=== PATIENT | male | born 1960 | race Caucasian/White ===

== ENCOUNTER 2022-05-11 10:30 | Emergency (ER) | payer OTHER, SELFPAY ==
[2022-05-11 10:41] VITALS: BP 123/75; PULSE 87; RESP 16; TEMP 36.8; O2SAT 98
[2022-05-11 10:48] VITALS: BP 123/75; PULSE 87; RESP 16; TEMP 36.8; O2SAT 98
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
== END 2022-05-11 10:59 | disposition home or self-care (01) ==
PROVIDERS: Emergency Provider Nurse Practitioner
DX: J01.90 Acute sinusitis, unspecified (principal)
CPT/HCPCS: 99213; G0463

== ENCOUNTER 2022-09-28 12:15 | Emergency (ER) | payer OTHER, SELFPAY ==
--- NOTE | 2022-09-28 12:21 | ED.WOUNDLAC ---
HPI - Wound/Laceration General Chief Complaint: Wound/Laceration Stated Complaint: finger laceration Time Seen by Provider: 09/28/22 12:23 Source: patient, RN notes reviewed and old records reviewed Mode of arrival: ambulatory Limitations: no limitations History of Present Illness HPI narrative: 61-year-old male presents to the [facility] with complaints of a finger laceration. flap laceration to the DIP left 2nd finger, dorsal lateral. J-shaped. Bleeding controlled. States that he was using a golf ball trimmer when he caught his finger. Unknown last Tdap Extremity Location: Left: hand ( left 2nd finger) Patient tetanus UTD: No Context: accidental Associated symptoms: none Treatments prior to arrival: bandage Related Data Allergies Allergy/AdvReac Type Severity Reaction Status Date / Time No Known Allergies Allergy Verified 09/28/22 12:18 Review of Systems Review of Systems: All systems reviewed & are unremarkable except as noted in HPI and below Constitutional: Constitutional: Reports no additional constitutional complaints Eyes: Eyes: Reports no additional eye complaints ENT: Reports system reviewed and no additional complaints, except as documented Cardiovascular: Cardiovascular: Reports no additional cardiovascular complaints, Denies chest pain and Denies dyspnea Respiratory: Respiratory: Reports no additional respiratory complaints, Denies chest congestion, Denies cough and Denies dyspnea Gastrointestinal: Gastrointestinal: Reports no additional gastrointestinal complaints, Denies abdominal pain, Denies nausea and Denies vomiting Musculoskeletal: Musculoskeletal: Reports no additional musculoskeletal complaints Integumentary/Breasts: Skin/Breast: Reports as per HPI and Reports wounds Neurologic: Reports system reviewed and no additional complaints, except as documented Psychiatric: Psychiatric: Reports no additional psychiatric complaints Allergic/Immunologic: Allergic/Immunologic: Reports no additional allergic/immunologic complaints [facility] Past Medical History Medical History Facial fracture Left knee pain Recurrent sinusitis Surgical History Surgical History History of knee surgery bilateral arthroscopy for meniscectomy History of sinus surgery Family History Family History Mother Family history non-contributory Social History Social History Smoking status: Never smoker Substance use: never Living arrangements: with family Gender identity (if verbalized by the patient): Male Sexual Orientation (if Verbalized by the Patient): Straight or Heterosexual Spiritual care concerns: Yes (Kyler) Comments At the time of my signature, I reviewed and agree with the nursing past medical, surgical, social, and family history. There is no relevant family history pertinent to the patient complaint. Exam Const: General: cooperative, healthy appearing, comfortable, no acute distress, well developed, alert and well nourished Nutritional Appearance: well nourished Orientation/consciousness: patient oriented x3 Limitations: no limitations HENMT: Head: normal to inspection Ears: hearing grossly normal bilaterally and external ears normal Face/Nose/Sinus: Normal external nose present, Normal nares present, Normal nasal mucous membranes and turbinates present and normal facial exam Face and sinus: normal facial exam Mouth: Yes lip normal Eyes: General: appearance normal, both eyes and all related structures Alignment and Position: alignment normal Periorbital: periorbital findings normal Pupils: Equal, round and reactive pupils present EOM: EOMs intact bilaterally Neck: Neck: normal visual inspection, full ROM, no lymphadenopathy and no meningeal signs Chest: Chest palpati
[2022-09-28 12:25] VITALS: BP 104/78; PULSE 79; RESP 16; TEMP 36.7; O2SAT 100
[2022-09-28] MEDS: TETANUS,DIPHTHERIA,AC PERTUSSIS ADULT (0.5 ML) BOOSTRIX IM (13:00)
== END 2022-09-28 13:04 | disposition home or self-care (01) ==
PROVIDERS: Emergency Provider Nurse Practitioner
DX: S61.211A Laceration without foreign body of left index finger without damage to nail, initial encounter (principal); W29.3XXA Contact with powered garden and outdoor hand tools and machinery, initial encounter; Z23 Encounter for immunization; E78.00 Pure hypercholesterolemia, unspecified; I10 Essential (primary) hypertension
CPT/HCPCS: 12001; 90471; 90715; 99212; G0463

== ENCOUNTER 2022-10-11 08:03 | Emergency (ER) | payer OTHER, SELFPAY ==
[2022-10-11 08:05] VITALS: BP 113/71; PULSE 70; RESP 16; TEMP 36.5; O2SAT 100
--- NOTE | 2022-10-11 08:13 | ED.SKABFB ---
HPI - Skin/Abscess/Foreign Bdy General Chief complaint: Skin/Abscess/Foreign Body Stated complaint: Remove Stitches Time Seen by Provider: 10/11/22 08:05 Source: patient Mode of arrival: ambulatory Limitations: no limitations History of Present Illness HPI narrative: Mr. Aragon is a 61-year-old male patient presenting to the clinic today for suture removal of his left index finger. States that he cut his finger 2 weeks ago and came into the clinic and had it sutured. It is in the bend of his medial PIP joint. Wound is well healing without drainage or redness. Related Data Home Medications Medication Instructions Recorded Confirmed No Home Medications 10/11/22 10/11/22 Allergies Allergy/AdvReac Type Severity Reaction Status Date / Time No Known Allergies Allergy Verified 10/11/22 08:09 Review of Systems Review of Systems: Pertinent positives per HPI. Patient denies any fever, chills, rash, headache, visual changes, dizziness, cough, runny nose, sore throat, shortness of breath, chest pain, palpitations, nausea, vomiting, diarrhea, constipation, abdominal pain, or any urinary issues. PMFSH Past Medical History Medical History Facial fracture Left knee pain Recurrent sinusitis Surgical History Surgical History History of knee surgery bilateral arthroscopy for meniscectomy History of sinus surgery Family History Family History Mother Family history non-contributory Social History Social History Smoking status: Never smoker Substance use: never Living arrangements: with family Gender identity (if verbalized by the patient): Male Sexual Orientation (if Verbalized by the Patient): Straight or Heterosexual Spiritual care concerns: Yes (Kyler) Comments At the time of my signature, I reviewed and agree with the nursing past medical, surgical, social, and family history. There is no relevant family history pertinent to the patient complaint. Exam Narrative: General: Well-developed, well nourished, in no apparent distress Head: Normocephalic, atraumatic. Cardio: Regular rate and rhythm, s1 and s2 normal, no murmur appreciated. Resp: Clear to auscultation bilaterally, no rhonchi, rales, wheezing or rubs. Integumentary: [place]awson, warm, and dry, intact without lesion, no rashes. 4 interrupted sutures to the medial left index finger Course Course Emergency Course: Portions of this record may have been created with voice recognition software. Level of Care: Express Care Visit Vital Signs Vital signs: Vital Signs Temperature 36.5 C 10/11/22 08:05 Pulse Rate 70 10/11/22 08:05 Respiratory Rate 16 10/11/22 08:05 Blood Pressure 113/71 10/11/22 08:05 Pulse Oximetry 100 10/11/22 08:05 Temperature 36.5 C 10/11/22 08:05 Pulse Rate 70 10/11/22 08:05 Respiratory Rate 16 10/11/22 08:05 Blood Pressure 113/71 10/11/22 08:05 Pulse Oximetry 100 10/11/22 08:05 Vital signs reviewed MDM - Skin/Abscess/Foreign Bdy MDM Narrative Medical decision making narrative: At the time of visit patient is resting on the exam table. Wound appears to be well healed. Four interrupted sutures were removed in the clinic today using iris scissors and forceps. Patient tolerated procedure well. Supportive measures were discussed with the patient he voiced understanding discharge instructions and agrees to treatment plan. Differential Diagnosis Differential diagnosis: Likely other (Suture removal) Discharge Plan Discharge Clinical Impression: Encounter for removal of sutures Patient Disposition: Home, Self-Care Condition: Stable Instructions: Antibiotic Form, Stitches Removal (ED) Additional Instructions: 4 sutu
== END 2022-10-11 08:18 | disposition home or self-care (01) ==
PROVIDERS: Emergency Provider Nurse Practitioner Family; PCP Family Medicine Sports Medicine
DX: S61.211D Laceration without foreign body of left index finger without damage to nail, subsequent encounter (principal); W45.8XXD Other foreign body or object entering through skin, subsequent encounter
CPT/HCPCS: 99211; G0463

== ENCOUNTER 2024-07-18 15:21 | Emergency (ER) | payer OTHER, SELFPAY ==
--- NOTE | ~2024-07-18 | XR_ITS ---
EXAMINATION: XR chest 2V Exam Date/Time: 07/18/2024 15:42 CDT HISTORY: cough/sob x 2 weeks Comparison: None. RESULT: Lines, tubes, and devices: None. Lungs and pleura: Biapical pleural scarring. Hyperinflation as can be seen with emphysema. Cardiomediastinal silhouette: Unremarkable. Other: No acute osseous or upper abdominal finding. IMPRESSION: No acute cardiopulmonary process. Reviewed, dictated and finalized at location K.
[2024-07-18 15:29] VITALS: BP 119/83; PULSE 85; RESP 16; TEMP 36.8; O2SAT 97
--- NOTE | 2024-07-18 15:40 | ED.URI ---
HPI - URI/Sore Throat General Chief Complaint: Upper Respiratory Infection Stated Complaint: Cough/Chest Congestion Time Seen by Provider: 07/18/24 15:35 Source: patient Mode of arrival: ambulatory Limitations: no limitations History of Present Illness HPI Narrative: Rodrick is a 63-year-old male patient presenting to the clinic today with complaints of cough and chest congestion x2 weeks. He reports over the past 2 days he has become more short of breath. Has a nonproductive cough. Has felt feverish but has not checked his temperature but has had some body aches and chills. Did a tele doc and was prescribed prescription for amoxicillin and albuterol inhaler. Has 1 more day left amoxicillin. States the antibiotic has cleared up the sinuses however he still has the cough and shortness of breath. MD elicited complaint: sore throat and nasal congestion Related Data Home Medications ?Medication ?Instructions ?Recorded ?Confirmed ?Last Taken ?Type albuterol sulfate 90 mcg/actuation inhalation 07/18/24 Unknown History aerosol inhaler amitriptyline 10 mg tablet mg 07/18/24 Unknown History amoxicillin 875 mg-potassium tablet 07/18/24 Unknown History clavulanate 125 mg tablet trazodone 100 mg tablet mg 07/18/24 Unknown History Allergies Allergy/AdvReac Type Severity Reaction Status Date / Time No Known Allergies Allergy Verified 07/18/24 15:36 Review of Systems Review of Systems: Pertinent positives per HPI. Patient denies any fever, chills, rash, headache, visual changes, dizziness, chest pain, palpitations, nausea, vomiting, diarrhea, constipation, abdominal pain, or any urinary issues. ON LICENSE OF [facility] Past Medical History Medical History Left knee pain Recurrent sinusitis Facial fracture Surgical History Surgical History History of knee surgery bilateral arthroscopy for meniscectomy History of sinus surgery Family History Family History Mother Family history non-contributory Social History Social History Smoking status: Never smoker Substance use: never Living arrangements: with family Gender identity (if verbalized by the patient): Male Sexual Orientation (if Verbalized by the Patient): Straight or Heterosexual Spiritual care concerns: Yes (Kyler) Comments At the time of my signature, I reviewed and agree with the nursing past medical, surgical, social, and family history. There is no relevant family history pertinent to the patient complaint. Exam Narrative: General: Well-developed, well nourished, in no apparent distress Head: Normocephalic, atraumatic Eyes: Pupils equally round and reactive to light bilaterally, EOM intact, sclera and conjunctive clear, no discharge, lids normal Ears: TMs intact and clear, ear canals clear, no drainage, grossly hearing normal. Nose: Nares patent, clear nasal discharge, no inflammation, no sinus tenderness. Mouth: Oral pharynx without lesions or masses, good dentition, MMM. Neck: Supple, trachea midline, no enlargement of anterior or posterior cervical nodes, no thyroid masses or goiter palpable. Cardio: Regular rate and rhythm, s1 and s2 normal, no murmur appreciated. Resp: Expiratory wheezing- lung sounds diminished, no rhonchi, rales,or rubs Course Course Emergency Course: Portions of this record may have been created with voice recognition software. Level of Care: Express Care Visit Vital Signs Vital signs: Vital Signs Temperature 36.8 C 07/18/24 15:29 Pulse Rate 85 07/18/24 15:29 Respiratory Rate 16 07/18/24 15:29 Blood Pressure 119/83 07/18/24 15:29 Pulse Oximetry 97 07/18/24 15:29 Temperature 36.8 C 07/18/24 15:29 Pulse Rate 85 07/18/24 15:29 Respiratory Rate 16 07/18/24 15:29 Blood Pressure 119/83 07/18/24 15:29 Pulse Oximetry 97 07/18/24 15:29 Vital signs reviewed MDM - URI/Sore Throat MDM Narrative Medical decision making narrative: At the time of visit patient is resting comfortably on the exam table. Patient appears to be nontoxic. Diagnostics: Chest x-rays negative for any acute cardiopulmonary process. Medications: Hand-held neb DuoNeb treatment given in the clinic today. Patient reports that he feels as though he can take a deeper breath after nebulizer treatment. Plan: I suspect patient has bronchitis. Prescription for prednisone was sent to the pharmacy. Supportive measures were discussed with the patient and they voiced understanding discharge instructions and agrees to treatment plan. Return precautions reviewed Differential Diagnosis Differential diagnosis: Likely upper respiratory infection, otitis media, sinusitis, viral infection, bronchitis, influenza, pharyngitis and other (COVID) Discharge Plan Discharge Clinical Impression: Bronchitis Patient Disposition: Home, Self-Care Condition: Stable Instructions: Antibiotic Form, Acute Bronchitis (ED) Additional Instructions: Chest x-rays negative for any acute cardiopulmonary process. DuoNeb treatment given in the clinic today. Take prescription medications only as prescribed-prednisone Finish taking Augmentin as prescribed Continue use of albuterol inhaler as needed for cough, shortness of breath, or wheeze. Increase fluids and stay well hydrated Tylenol/motrin for pain/fever Flonase and OTC antihistamines as directed Vicks vapor rub to open sinuses Sinus rinses for congestion Cepacol spray, cough drops, throat lozenges, warm tea with honey/lemon, gargle salt water to soothe throat BRAT diet for diarrhea Clear liquids x 24 hours then advance as tolerated for nausea/vomiting Go to the ED if you develop a worsening in your condition- high fever not controlled by Tylenol or Motrin, dehydration, weakness, lethargy, shortness of breath, or chest pain. Follow up with your PCP in 3-5 days if symptoms persist. Patient Language: Bulgarian Prescriptions: New prednisone 20 mg tablet 40 mg PO DAILY 5 Days Qty: 10 0RF No Action trazodone 100 mg tablet amitriptyline 10 mg tablet albuterol sulfate 90 mcg/actuation HFA aerosol inhaler INHALATION amoxicillin-pot clavulanate 875-125 mg tablet Follow-up/Referrals: PHYSICIAN,DEPUTY SHERIFF CUSTODY [Primary Care Provider] - Quality NIHSS Nursing Documentation ED NIHSS nursing documentation: reviewed/agree
[2024-07-18] MEDS: IPRATROPIUM 0.5 MG/ALBUTEROL SULFATE 2.5 MG AMPUL.NEB 3 ML INHALATION (15:48)
== END 2024-07-18 16:30 | disposition home or self-care (01) ==
PROVIDERS: Emergency Provider Nurse Practitioner Family
DX: J40 Bronchitis, not specified as acute or chronic (principal)
CPT/HCPCS: 71046; 94640; 99213; G0463